=== PATIENT | male | born 1970 | race Two or more races ===

== ENCOUNTER 2019-02-05 07:15 | Day surgery (SDC) | payer OTHER ==
[2019-02-03 18:39] VITALS: Ht 182.9 cm; Wt 75.0 kg
[~2019-02-05] VITALS: Ht 182.9 cm; Wt 75.0 kg
[2019-02-05] VITALS (12 sets, daily range): BP systolic 94–115; BP diastolic 66–79; PULSE 64–82; RESP 13–19
[~2019-02-05 07:15] MED LIST: ASPI-903 PO; BENA1TAB12 PO; CARV6.2579 PO; DIAZEPAM 5 MG TAB PO ONE; DIPHENHYDRAMINE 50 MG CAP PO ONE; FAMOTIDINE 20 MG TAB PO ONE; ISOS30TA PO; NATE120T12 PO; ROSU10TA55 PO; SITA1TAB7 PO; SOD CHLORIDE 0.45% 1,000 ML IV SCH
[2019-02-05] MEDS ORDERED: FENTAnyl 50 MCG/ML VIAL ONE (08:44)
[2019-02-05] MEDS ORDERED: LIDOCAINE 1% (MDV) 20 ML INJ ONE (08:44)
[2019-02-05] MEDS ORDERED: MIDAZOLAM 1 MG/ML 2 ML INJ ONE (08:44)
[2019-02-05] MEDS ORDERED: IODIXANOL LOCM 100 ML BTL ONE (08:44)
[2019-02-05] MEDS ORDERED: HEPARIN 1000 UNITS/ML 10 ML INJ ONE (08:44)
[2019-02-05] MEDS ORDERED: NITROGLYCERIN (IC) 100 MCG/ML INJ ONE (08:45)
[2019-02-05] MEDS ORDERED: VERAPAMIL 5 MG INJ ONE (08:45)
[2019-02-05] MEDS ORDERED: SOD CHLORIDE 0.9% 500 ML ONE (10:12)
[2019-02-05] MEDS ORDERED: SOD CHLORIDE 0.9% 1,000 ML IV SCH (10:33)
--- NOTE | 2019-02-05 10:33 | SIPON ---
Date/Time of Note Date/Time of Note DATE: 02/05/19 TIME: 10:31 Operative Report Preoperative Diagnosis 1.chest pain 2.abnl mpi Postoperative Diagnosis 1.mutivessel kashia obstructive cad 2.Patent SVG x 2 3.Patent JACKSON-LAD Operation/Procedure Performed 1.[facility] 2.BYpass graft angio Surgeon see signature line investment sales assistant 1.Stephen Anesthesia: moderate sedation Estimated blood loss: minimal Transfusion Required none Specimen none Grafts/Implants none Complications none MARTA COLE Feb 05, 2019 10:33
[2019-02-05] MEDS ORDERED: ONDANSETRON 4 MG INJ IV PRN (11:00)
[2019-02-05] MEDS ORDERED: morphine 2 MG INJ IV PRN (11:00)
[2019-02-05] MEDS ORDERED: AL HYDROX/MG HYDROX/SIMETH 30 ML CUP PO PRN (11:00)
[2019-02-05] MEDS ORDERED: ACETAMINOPHEN 325 MG TAB PO PRN (11:00)
--- NOTE | 2019-02-06 09:43 | CARRPT ---
DATE OF PROCEDURE: 02/05/2019 TYPE OF PROCEDURES: 1. Left heart catheterization. 2. Coronary angiography. 3. Femoral angiography. 4. Bypass graft angiography including JACKSON arterial graft. 5. Moderate conscious sedation. 6. Measurement of left ventricular end diastolic pressure. ATTENDING PHYSICIAN: Dr. Marta Dumont. REFERRING PHYSICIAN: Dr. Strauss. INDICATION: Chest pain refractory to medical therapy with positive stress test findings for ischemia . TYPE OF ANESTHESIA: Conscious local. BRIEF HISTORY: Mr. Poon is a 48-year-old male with history of coronary artery disease, status post coronary artery bypass graft surgery in 2013 after findings of multivessel obstructive coronary arter y disease, receiving grafts x4, JACKSON to LAD, SVG to OM, SVG to PDA sequential and now flap or graft s urgery 2013, who presented with complaints of recurrent substernal chest pain and was ____ medical th erapy, underwent cardiac stress testing showing positive ischemia. He is now brought back to cardiac chemical laboratory assistant in order to assess for the possibility of significant obstructive coronary artery disease a nd symptoms of chest pain and positive stress test findings. PROCEDURE: After informed consent was obtained, the patient was brought to the [facility] cardiac catheterization lab where his right groin was prepped and draped in the usual sterile fashion, 2% lidocaine was infiltrated in the right groin in order to achieve adequate local anesthes ia. Using the modified Seldinger technique, the radial artery was cannulated and a 6-Angolan arterial sheath was placed. A 6-Angolan JL4 catheter was used to cannulate the left main coronary ostium. contrast injection, multiple views of left coronary arterial system were obtained. JL4 was remove d over a guidewire and a JR4 was used to cannulate the right coronary arterial ostium. With contrast injection, multiple views of the right coronary system were obtained. JR4 was removed over a guidew eber and a 6-Angolan pigtail was placed in the aortic. JR4 was used to cannulate the right coronary ar terial ostium. With contrast injection, multiple views of for coronary system obtained. JR4 was the n used to cannulate saphenous vein graft supplying obtuse marginal and sub vein graft supplying a lik yamil left-sided PDA and JACKSON arterial graft supplying the LAD, after which with contrast injection, in multiple views, all angiograms were obtained. The JR4 was additionally used to cross the aortic erwin ve. The LVEDP was measured and pullback across the aortic valve to assess for significant gradient _ ___ removed. Subsequently, at this time a pigtail catheter was placed in the ascending aorta and aor tic root angiography was undertaken to identify any further grafts and none were found and removed. Subsequently, at this time, final angiographic image of the right femoral arterial insertion site was then obtained revealing the sheath to placed just in the proximal portion of the superficial femoral artery, but in a very high bifurcation. Subsequently, the sheath was removed, manual pressure held until optimal hemostasis was achieved. This completed the procedure. There were no noted complicati ons. FINDINGS: 1. Coronary angiography: Left main 4 mm, no significant stenoses. Circumflex proximally 3.5 mm ves fabiano becomes 100% occluded shortly after its take off. It has a proximal branching obtuse marginals, sub 2 mm vessels x2 with no focal stenoses. The LAD appears to be flush occluded at ostium. There i s a proximal branching of either the obtuse marginal or diagonal 2 mm vessel with no significant foca l stenoses. The patient's right coronary artery is a 3 mm vessel and is flush occluded shortly after its takeoff. 2. Bypass graft angiography revealed the patient to have a widely patent saphenous vein graft supply ing what is most likely a left-sided PDA with no significant focal stenoses. Saphenous vein graft jurado pplying obtuse marginal which shows no significant focal stenoses and a JACKSON arteriograph supplying a reasonable sized LAD with no intervening stenosis and excellent flow and distally there is no stenos is within the subclavian. Aortic root angiography revealed the patient's elim ira left and right coronary arteries. The patient' s saphenous vein graft supplying left-sided PDA and saphenous vein graft supplying OM, no other graft s were identified. Femoral angiography revealed the sheath to placed just in the bifurcation of the superficial femoral artery very small caliber vessel. TOTAL FLUOROSCOPY TIME: 4.9 minutes. TOTAL CONTRAST: 140 mL. IMPRESSION: 1. Multivessel elim ira obstructive coronary artery disease involving 100% occlusion of the patient's LAD, circumflex and right coronary arteries. 2. Widely patent left anterior descending to JACKSON. 3. Widely patent saphenous vein graft to obtuse marginal. 4. Widely patent saphenous vein graft presumed to the left-sided PDA. 5. High normal left heart filling pressures of 14 to 16, no significant aortic systolic gradient. RECOMMENDATIONS: In light of procedure findings at this time would: 1. Maximize medical management. 2. Aggressive risk factor reduction. 3. The patient will be readmitted to the same day surgery center for post-cath observation and christine nued management of symptoms with probable discharge later this afternoon. Dictated By: MARTA GAGNON/NTS Conf#: [id number] DID#: [id number] CC: JON STRAUSS MD;*EndCC*
== END 2019-02-05 17:16 | disposition home or self-care (01) ==
LOC: SDS 07:15
PROVIDERS: ATTEND Internal Medicine
DX: I25.10 Atherosclerotic heart disease of native coronary artery without angina pectoris (principal)
CPT/HCPCS: 71045; 80048; 80061; 82962; 85025; 85610; 85730; 93005; 93459; C1887; C1894; J1644; J2250; J3010; J7040; Q9967; Z7610